=== PATIENT | male | born 1990 | race Hispanic/Latino ===

== ENCOUNTER 2022-05-09 12:37 | Emergency (ER) | payer OTHER ==
[~2022-05-09] VITALS: Ht 175.3 cm; Wt 113.4 kg
[~2022-05-09 12:37] MED LIST: CEPHALEXIN500 M1 PO; HYDROCHLOROTH12.5 MG PO; OXYCODONE HCL10 MG PO; PRILOSEC OTC20 MG PO
[2022-05-09] MEDS ORDERED: BUPROPION XL300 MG PO (13:36)
[2022-05-09] MEDS ORDERED: HYDROXYZINE HCL25 MG PO (13:36)
[2022-05-09] MEDS ORDERED: NICOTINE1 EAC1 TD (13:36)
== END 2022-05-09 14:08 | disposition home or self-care (01) ==
LOC: ED 12:37
DX: K64.9 Unspecified hemorrhoids (principal); I10 Essential (primary) hypertension; K21.9 Gastro-esophageal reflux disease without esophagitis; Z79.899 Other long term (current) drug therapy
CPT/HCPCS: 99282

== ENCOUNTER 2023-03-02 09:48 | Emergency (ER) | payer OTHER ==
[~2023-03-02] VITALS: Ht 175.3 cm; Wt 118.0 kg
[~2023-03-02 09:48] MED LIST changes: +BUPROPION XL300 MG PO; +HYDROXYZINE HCL25 MG PO; +NICOTINE1 EAC1 TD
[2023-03-02] MEDS ORDERED: SIMVASTATIN20 MG PO (09:58)
[2023-03-02 11:14] VITALS: BP 134/68
--- NOTE | 2023-03-02 18:10 | EKG ---
[facility] [address] [facility] [place] [address] Signed Normal sinus rhythm Low voltage QRS Borderline ECG When compared with ECG of 17-JUN-2021 09:48, No significant change was found Confirmed by GUILLE CURRAN MD ([id number]) on 03/02/2023 6:10:37 PM Electronically Signed By: GUILLE CURRAN MD 03/02/231809 PATIENT NAME: LONNIE VAZQUEZ Electrocardiogram DATE OF : 88 PHYSICIAN: GUILLE CURRAN MD REPORT #: [id number] REPORT IS CONFIDENTIAL AND NOT TO BE RELEASED WITHOUT AUTHORIZATION
== END 2023-03-02 11:14 | disposition home or self-care (01) ==
LOC: ED 09:48
DX: R07.89 Other chest pain (principal); I10 Essential (primary) hypertension; K21.9 Gastro-esophageal reflux disease without esophagitis; Z79.899 Other long term (current) drug therapy
CPT/HCPCS: 36415; 71045; 80053; 83735; 84484; 85025; 93005; 93010; 99285-25; A9270

== ENCOUNTER 2024-05-26 07:35 | Day surgery (SDC) | payer BC, OTHER ==
[2024-05-24 15:39] VITALS: BP 138/77
[~2024-05-26] VITALS: Ht 175.3 cm; Wt 109.1 kg
[~2024-05-26 07:35] MED LIST changes: +IBLOOD GLUCOSE TEST STRIP 1 EA TEST VI PRN; +LACTATED RINGER'S 1,000 ML IV SCH; +LIDOCAINE HCL 1% 5 ML SDV INJ ONE; +MIDAZOLAM HCL 5 MG/5 ML VIAL IV PRN; +PROTONIX IV40 MG IV; +SIMVASTATIN20 MG PO; +fentaNYL citrate 100 MCG/2 ML VIAL IV PRN
[2024-05-26 07:42] VITALS: BP 138/73
--- NOTE | 2024-05-26 07:47 | NUR ---
PT NOT AVAILABLE FOR VISIT. PROVIDED PRAYER.
--- NOTE | 2024-05-26 07:55 | NUR ---
NO ONE WITH PT. TO CALL RIDE.
[2024-05-26] MEDS ORDERED: fentaNYL citrate 100 MCG/2 ML VIAL ONE (09:00)
[2024-05-26] MEDS ORDERED: propofoL 200 MG/20 ML VIAL ONE (09:01)
[2024-05-26] MEDS ORDERED: LIDOCAINE HCL 2% 5 ML SDV ONE (09:03)
[2024-05-26 09:48] VITALS: BP 129/63
--- NOTE | 2024-05-26 10:21 | NUR ---
05/26/24 [facility] [place] 0924: PATIENT ARRIVED TO PACU DROWSY. DENIES PAIN. 0935: OXYGEN REMOVED. PATIENT ON ROOM AIR. 0945: DISCHARGE INSTRUCTIONS GIVEN TO PATIENT. STAND BY ASSIST WHILE PATIENT MOVED TO SIDE OF BED. PATIENT GETTING DRESSED. 0955: IV DC'D WNL. TIP INTACT. DRESSING APPLIED. PATIENT DISCHARGED TO HOME WITH FRIEND VIA WHEELCHAIR.
--- NOTE | 2024-05-26 10:25 | OR ---
[facility] [address] [place], [place] [address] Signed DATE OF OPERATION: 05/26/2024 SURGEON: Prema White MD PREOPERATIVE DIAGNOSES: 1. Gastroesophageal reflux disease. 2. Nausea and vomiting. 3. Epigastric abdominal pain associated with melena x1, now resolved. 4. Chronic hepatitis C virus. 5. Daily marijuana use. POSTOPERATIVE DIAGNOSES: 1. GE junction at 34 cm. 2. Mild diffuse gastritis. 3. Possible tiny sliding hiatal hernia. PROCEDURE: EGD with CLOtest and biopsies of the antrum. ESTIMATED BLOOD LOSS: None. INDICATIONS: Gabino is a 33-year-old gentleman, asked to see me for an upper endoscopy. He said if he does not use his Protonix, his acid reflux is miserable. He has a lot of nausea and vomiting. He is using marijuana multiple times each day. He said he has a lot of anxiety and panic attacks and apparently he has bipolar disorder as well. He said his previous job was quite stressful. He changed and went [place] to [place] local [place] and said it has been much better. He also likes to use alcohol on a regular basis. He said he no longer smokes cigarettes. He is trying to be more healthy with the help of his teenage daughter. He thinks once he had some epigastric abdominal pain followed by some black stool, but that is all resolved now. He told me the stool is now brown. In the office, I gave him a pamphlet on upper endoscopy. We reviewed the nature of the test. There is risk including, but not limited to gas bloating, crampy abdominal pain, bleeding, perforation requiring surgery, and missed diagnosis. We also reviewed the need for monitored anesthesia care given his full round face, pedro and his daily use of marijuana and alcohol. He understands an adult person has to take him home afterwards. He is not to work for 24 hours. He has expressed understanding and would like to proceed. Electronically Signed By: PREMA WHITE MD 05/26/24 1025 PATIENT NAME: GABINO VAZQUEZ OPERATIVE REPORT DATE OF : 88 REPORT #: [id number] PHYSICIAN: PREMA WHITE MD PCP: HOLLY AGUILA PAC REPORT IS CONFIDENTIAL AND NOT TO BE RELEASED WITHOUT AUTHORIZATION [facility] [address] [place] [id number] Signed PROCEDURE IN DETAIL: Gabino was taken into our endoscopy suite and placed in the supine semi-recumbent position. A bite block was utilized for the case. He was given propofol IV per our nurse encoding machine operator. He required frequent airway management. The adult gastroscope was introduced and advanced under direct visualization of the camera without difficulty. The duodenum and pyloric channel were unremarkable. His stomach showed very mild diffuse erythematous changes consistent with people who smoke on a daily basis. There were no ulcerations. We took a biopsy of the antrum for CLOtest as well as pathologic review. Upon retroflexion of the scope, he may have just a very tiny sliding hiatal hernia. The scope was withdrawn up through the area of the GE junction, which was compliant without stricture. There are no gastric or esophageal varices. More or less, the Z-line is intact at 34 cm. There was no Galindo's mucosa. No distal esophagitis. I did see a couple of small islands of tissue below the upper esophageal sphincter. I suspect that is from his ongoing nausea and vomiting. After this, the gas was suctioned out and the gastroscope removed. Gabino tolerated the procedure quite well. RECOMMENDATIONS: I will see Gabino back in my office in 7 to 14 days to review his results. He might be limon to consider reducing his marijuana use and alcohol use significantly. Prema White MD ALB/MODL /[id number] cc: MD Holly Marcelo PA-C Copies: PREAM WHITE MD, ERIKA PAC ~ Electronically Signed By: PREMA WHITE MD 05/26/24 1025 PATIENT NAME: GABINO VAZQUEZ OPERATIVE REPORT DATE OF : 88 REPORT #: [id number] PHYSICIAN: PREMA WHITE MD PCP: HOLLY AGUILA REPORT IS CONFIDENTIAL AND NOT TO BE RELEASED WITHOUT AUTHORIZATION
--- NOTE | 2024-05-31 17:48 | PATH ---
[facility] [address] [place], [place] [address] Signed SPECIMEN(S): A ANTRUM/PYLORUS BIOPSY SPECIMEN SOURCE: A. ANTRUM/PYLORUS BIOPSY CLINICAL HISTORY: Reflux and abdominal pain FINAL PATHOLOGIC DIAGNOSIS: Antrum/pylorus: - Benign gastric mucosa with focal slight chronic inflammation. - Negative for evidence of Helicobacter organisms on routine HE-stained sections. JVR:martha MICROSCOPIC EXAMINATION: Histologic sections of all submitted blocks are examined by light microscopy. These findings, together with the gross examination, support the pathologic diagnosis. GROSS DESCRIPTION: The specimen, labeled and designated "Mohit antrum biopsy," is received in formalin and consists of one mei soft tissue fragment, 0.2 cm. Entirely submitted in (A1). JS (under the direct supervision of a pathologist) The Gross Description was prepared using a voice recognition system. The report was reviewed for accuracy; however, sound-alike word errors, addition and/or deletions may occur. If there is any question about this report, please contact Client Services. PERFORMING LABORATORY: Technical component was performed by [facility], [address] [place] [id number] (CLIA# [id number]). Professional interpretation was performed by [facility], [address] [place] [id number] (CLIA#: [id number]). Diagnostician: Martin Bonilla MD Pathologist Electronically Signed 05/31/2024 PATIENT NAME: LONNIE VAZQUEZ PATHOLOGY DATE OF : 88 REPORT #: [id number] PHYSICIAN: [facility] PCP: ALEKSANDRA AGUILA PAC REPORT IS CONFIDENTIAL AND NOT TO BE RELEASED WITHOUT AUTHORIZATION [address] [address] Signed Copies: ~ PATIENT NAME: LONNIE VAZQUEZ PATHOLOGY DATE OF : 88 REPORT #: [id number] PHYSICIAN: [facility] PATH[facility] PCP: ALEKSANDRA AGUILA PAC REPORT IS CONFIDENTIAL AND NOT TO BE RELEASED WITHOUT AUTHORIZATION
== END 2024-05-26 09:55 | disposition home or self-care (01) ==
LOC: DS 07:35
PROVIDERS: ATTEND Colon & Rectal Surgery
PROC: 0DB68ZX Excision of Stomach, Via Natural or Artificial Opening Endoscopic, Diagnostic (ICD-10-PCS; principal; 2024-05-26 09:00)
DX: K29.50 Unspecified chronic gastritis without bleeding (principal); K21.9 Gastro-esophageal reflux disease without esophagitis; B18.2 Chronic viral hepatitis C; E78.5 Hyperlipidemia, unspecified; F12.188 Cannabis abuse with other cannabis-induced disorder; I10 Essential (primary) hypertension; G89.29 Other chronic pain; F31.9 Bipolar disorder, unspecified; F41.9 Anxiety disorder, unspecified; F15.10 Other stimulant abuse, uncomplicated; E66.01 Morbid (severe) obesity due to excess calories; Z68.35 Body mass index [BMI] 35.0-35.9, adult; Z79.899 Other long term (current) drug therapy
CPT/HCPCS: 00813; 36415; 87077; J2001; J2704; J3010; J7121

== ENCOUNTER 2025-02-04 10:36 | Emergency (ER) | payer BC, OTHER ==
[~2025-02-04] VITALS: Ht 175.3 cm; Wt 108.5 kg
[~2025-02-04 10:36] MED LIST changes: -IBLOOD GLUCOSE TEST STRIP 1 EA TEST VI PRN; -LACTATED RINGER'S 1,000 ML IV SCH; -LIDOCAINE HCL 1% 5 ML SDV INJ ONE; -MIDAZOLAM HCL 5 MG/5 ML VIAL IV PRN; -fentaNYL citrate 100 MCG/2 ML VIAL IV PRN
[2025-02-04 11:24] LABS: BASOPHILS 0.5 % (0-2); EOSINOPHILS 0.3 % (0-6); HEMATOCRIT 47.9 % (35.0-50.0); LYMPHOCYTES 15.7 % (24-44); MCH 30.8 (27-36); MCHC 35.5 g/dl (30-36); MCV 86.8 fl (81-99); MONOCYTES 2.7 % (0-12); NEUTROPHILS 80.8 % (39-80); PLATELET COUNT 276 K/uL (140-440); RBC 5.52 M/ul (4.3-5.7); RDW 13.6 (10.5-15.0)
[2025-02-04] MEDS ORDERED: ondansetron HCL 4 MG/2 ML VIAL IV ONE (11:30)
[2025-02-04 11:37] LABS: BILIRUBIN, URINE NEGATIVE (negative); BLOOD/HGB, URINE NEGATIVE (Negative); KETONE, URINE SMALL (Negative); LEUK ESTERASE, URINE NEGATIVE (negative); NITRITE, URINE NEGATIVE (negative)
[2025-02-04 11:40] LABS: ALBUMIN 4.6 g/dL (3.4-5.0); ALBUMIN/GLOBULIN RATIO 1.39 (1.1-2.4); ANION GAP 15.8 (7-21); BILIRUBIN, TOTAL 1.2 mg/dL (0.2-1.0); BUN/CREATININE RATIO 13.2 (6.0-28.6); CALCIUM 9.2 mg/dL (8.5-10.1); CREATININE, SERUM 1.06 mg/dL (0.70-1.30); POTASSIUM 3.8 mmol/L (3.5-5.1); PROTEIN, TOTAL 7.9 g/dL (6.4-8.2)
[2025-02-04 12:41] VITALS: BP 140/69
== END 2025-02-04 12:40 | disposition home or self-care (01) ==
LOC: ED 10:36
PROVIDERS: Emergency Medicine
DX: R10.13 Epigastric pain (principal); I10 Essential (primary) hypertension; K21.9 Gastro-esophageal reflux disease without esophagitis
CPT/HCPCS: 36415; 74176; 80053; 81003; 83690; 85025; 96374; 99284-25; J2405